=== PATIENT | female | born 1935 | race Caucasian/White ===

== ENCOUNTER 2016-06-20 17:10 | Inpatient (IN) | payer MEDICARE, OTHER, MEDICAID ==
[~2016-06-20] VITALS: Ht 160 cm; Wt 113.7 kg
[~2016-06-20 17:10] MED LIST: ASPI-973 PO; CALC-1021 PO; CYAN100T PO; ENOX40DI8 SUBQ; FISH OIL 500 M1 EAC2 PO; FLUO20CA25 PO; FURO40TA4 PO; GABA-502 PO; GLPZ5T PO; HYDR-3825 PO; INSU100I13 SUBQ; INSU200I SQ; LIP40 PO; LOSA50TA37 PO; METH35.42 TOPICAL; METO25TA6 PO; MULT-1018 PO; MYCC TOP; NITR0.4T SL; OMEP20TA86 PO; POTA-62 PO; TRAM50TA2 PO; UBID200C31 PO; ZLP5T PO
[2016-06-20 17:20] VITALS: BP 114/45; PULSE 101; RESP 13; O2SAT 98
[2016-06-20 17:43] LABS: BASOPHILS % (AUTO) 0.3 % (0-3); EOSINOPHILS % (AUTO) 2.2 % (0-5); MONOCYTES % (AUTO) 7.1 % (4-12); Mean Corpuscular Hemoglobin 28.9 pg (27.0-35.0); Mean Corpuscular Volume 93.1 fL (81-100); NEUTROPHILS % (AUTO) 54.6 % (40-74); Platelet Count 169 bil/L (150-400)
[2016-06-20 17:55] VITALS: BP 120/38; PULSE 77; RESP 19; O2SAT 97
--- NOTE | 2016-06-20 18:04 | ED.REPORT ---
HPI-General Illness Date of Service Jun 20, 2016 ED Provider: Iker Saxena DO Nursing Notes Stated Complaint: DECREASED LOC Chief Complaint: Neuro Symptoms/ Deficits Nursing Notes Reviewed: Yes Allergies: Coded Allergies: Sulfa (Sulfonamide Antibiotics) (Verified Allergy, Unknown, 08/19/13) Scheduled Aspirin (Aspirin) 81 Mg Tablet 81 MG PO DAILY Atorvastatin (Lipitor) 40 Mg Tablet 40 MG PO DAILY Calcium Carbonate/Vitamin D3 (Oyster Shell Calcium + D Cplt) 500 Mg-200 Tablet 1 EACH PO BID Cyanocobalamin (Vitamin B-12) (Vitamin B-12) 100 Mcg Tablet 100 MCG PO DAILY Enoxaparin Sodium (Enoxaparin Sodium) 40 Mg/0.4 Ml Syringe 40 MG SUBQ Q24 Fluoxetine (Fluoxetine) 20 Mg Capsule 20 MG PO HS Furosemide (Furosemide) 40 Mg Tablet 40 MG PO BID Gabapentin (Gabapentin) 300 Mg Capsule 900 MG PO HS Gabapentin (Gabapentin) 300 Mg Capsule 300 MG PO QAM Glipizide (Glipizide) 5 Mg Tablet 5 MG PO BID Insulin Glargine (Lantus U100 Solostar Insulin Pen) 100 Unit/1 Ml Insuln.pen 28 UNIT SUBQ HS Insulin Lispro (Humalog Kwikpen) 200 Unit/Ml (3 Ml) Insuln.pen 10 UNIT SQ TIDAC Losartan Potassium (Losartan Potassium) 50 Mg Tablet 50 MG PO DAILY Metoprolol Tartrate (Metoprolol Tartrate) 25 Mg Tablet 25 MG PO BID hold for pulse < 60. Multivitamin (Multi Vitamin Daily) 1 Each Tablet 1 EACH PO DAILY Nystatin (Nystatin) 60 Applic/15 Gm Cream 1 APPLIC TOP BID until resolved Omeprazole (Omeprazole) 20 Mg Tablet.dr 20 MG PO DAILY Potassium Chloride ER (Potassium Chloride ER) 20 Meq Tablet.er 20 MEQ PO DAILY TAKE WITH FOOD [place] Oil/[place]-3 Fatty Acids (Fish Oil 500 mg Softgel) 1 Each Capsule 1 EACH PO HS Tramadol (Tramadol) 50 Mg Tablet 50 MG PO TID Ubidecarenone (Coenzyme Q-10) 200 Mg Capsule 200 MG PO DAILY Scheduled PRN Hydrocodone-Acetaminophen 7.5-325 mg (Hydrocodone-Acetaminophen 7.5-325 mg) 1 Each Tablet 1 TABLET PO Q4H PRN PRN For Pain Methyl Salicylate/Menthol (Icy Hot Cream) 35.4 Gm Cream..g. 1 APPLIC TOPICAL QID PRN PRN For Pain Nitroglycerin SL (Nitrostat) 0.4 Mg Subl 0.4 MG SL Q5MIN PRN PRN For Chest Pain Zolpidem (Ambien) 5 Mg Tablet 5 MG PO HS PRN PRN insomnia General Time Seen by MD: 18:03 Transferred From: [facility] Chief Complaint Altered mental status Hx Obtained From: Patient Arrived By: Ambulance Sudden in Onset?: No Onset Occurred: Onset unknown Recent Healthcare: No recent doctor visit, No recent hospitalization Past Medical History Past Medical History Neuropathy Chronic kidney disease Aortic stenosis Reports: Diabetes mellitus, GERD, Hyperlipidemia, Hypertension Reports: Depression Past Surgical History Knee surgery Reports: Appendectomy, Cholecystectomy, Hysterectomy Smoking History Never Smoker Social History Other Social History: Lives in [facility]dc, Local resident Ambulatory Status Independent Review of Systems Full Review of Systems Neurologic: Reports: Weakness Psychiatric: Reports: Change mental status Complete sys rev & neg: except as marked. Physical Exam Vital Signs Vital Signs Date Time Temp Pulse Resp B/P Pulse Ox O2 Delivery O2 Flow Rate FiO2 06/20/16 17:55 77 19 120/38 97 06/20/16 17:20 36.8 101 13 114/45 98 Room Air Initial VS: Reviewed Interpretation & Diagnostics Lab Results Interpretation Result Diagram: 06/20/16 1739 Test 06/20/16 17:34 06/20/16 17:39 White Blood Count 6.4th/mm3 (3.8-10.1) Red Blood Count 4.33mil/mm3 (3.90-5.20) Hemoglobin 12.5g/dL (12.0-15.6) Hematocrit 40.3% (35.0-46.0) Mean Corpuscular Volume 93.1fL (81-100) Mean Corpuscular Hemoglobin 28.9pg (27.0-35.0) Mean Corpuscular Hemoglobin Concent 31.0% (32.0-37.0) Red Cell Distribution Width 14.3% (12.3-15.4) Platelet Count 169bil/L (150-400) Neutrophils (%) (Auto) 54.6% (40-74) Lymphocytes (%) (Auto) 35.8% (14-46) Monocytes (%) (Auto) 7.1% (4-12) Eosinophils (%) (Auto) 2.2% (0-5) Basophils (%) (Auto) 0.3% (0-3) Re-Eval/Medical Decision Source of Hx: Old records Counseled Regarding: Diagnosis, Lab results Discharge & Departure Discharge Condition All VS Reviewed: Yes Condition: Stable Referrals: OTHER,PHYSICIAN (PCP) Scribe Attestation Portions of this note were transcribed by Isabel Solis. Dr. Odessa Mason personally performed the history, physical exam and medical decision-making; I reviewed and confirmed the accuracy of the information in the transcribed note. Signed by: Brianne Pabon, 06/20/2016 1800 copies to: PHYSICIAN Odessa POND Todd P DO Jun 20, 2016 18:04 Isabel Solis Jun 20, 2016 18:12 OTHER,PHYSICIAN (PCP) Scribe Attestation Portions of this note were transcribed by Isabel Solis. Dr. Odessa Mason personally performed the history, physical exam and medical decision-making; I reviewed and confirmed the accuracy of the information in the transcribed note. Signed by: Brianne Pabon 06/20/2016 1800 copies to: PHYSICIAN Od[place] POND Todd P DO Jun 20, 2016 18:04 Isabel Solis Jun 20, 2016 18:12
--- NOTE | 2016-06-20 18:22 | ED.REPORT ---
HPI-Neurologic Deficit Date of Service Jun 20, 2016 ED Provider: Iker Saxena DO Patient is a 80 year old female with a history of diabetes mellitus, chronic kidney disease, hypertension, and hyperlipidemia who presents to the ED via EMS from [facility] after she developed altered mental status and a left sided facial droop on unknown onset, with last known normal yesterday evening. Per SNF the patient had difficulty feeding herself this morning. She was then found to have difficulty swallowing and speaking this afternoon, around 2:30pm. Her son was notified of these changes at 4pm this afternoon. His son rushed over to their facility after receiving this call and decided to go through with transport to the ED. He noted that she had a left sided facial droop, difficulty speaking, slurred speech, weakness, and that she did not appear like herself. Her daughter -in-law last saw her yesterday evening at dinner, at which some she was at her baseline. The patient is typically very sharp and talkative. The patient reports a mild headache on arrival to the ED and is unsure when her symptoms started today. Patient denies numbness of her extremities. She has not previously had a stroke and denies a history of atrial fibrillation. Nursing Notes Stated Complaint: DECREASED LOC Chief Complaint: Neuro Symptoms/ Deficits Nursing Notes Reviewed: Yes Allergies: Coded Allergies: Sulfa (Sulfonamide Antibiotics) (Verified Allergy, Unknown, 06/20/16) Scheduled Allopurinol (Allopurinol) 100 Mg Tablet 200 MG PO DAILY Aspirin (Aspirin) 81 Mg Tablet 81 MG PO DAILY Atorvastatin (Lipitor) 40 Mg Tablet 40 MG PO HS Calcium Carbonate/Vitamin D3 (Oyster Shell Calcium + D Cplt) 500 Mg-200 Tablet 1 EACH PO BIDWM Cyanocobalamin (Vitamin B-12) (Vitamin B-12) 100 Mcg Tablet 100 MCG PO DAILY Furosemide (Furosemide) 40 Mg Tablet 40 MG PO BIDWM Gabapentin (Gabapentin) 300 Mg Capsule 900 MG PO HS GABAPENTIN 300 MG IN AM AND 900 MG AT HS Gabapentin (Gabapentin) 300 Mg Capsule 300 MG PO QAM GABAPENTIN 300 MG IN AM AND 900 MG AT HS Glipizide (Glipizide) 5 Mg Tablet 5 MG PO BIDWM Insulin Glargine (Lantus U100 Solostar Insulin Pen) 100 Unit/1 Ml Insuln.pen 28 UNIT SUBQ HS Insulin Lispro (Humalog Kwikpen) 200 Unit/Ml (3 Ml) Insuln.pen 10 UNIT SQ TIDAC Losartan Potassium (Losartan Potassium) 50 Mg Tablet 50 MG PO QAM Meloxicam (Meloxicam) 7.5 Mg/5 Ml Oral.susp 15 MG PO DAILY HOLD FOR THE FIRST 7 DAYS OF THE MONTH Metoprolol Tartrate (Metoprolol Tartrate) 25 Mg Tablet 25 MG PO BID hold for pulse < 60. Multivitamin (Multi Vitamin Daily) 1 Each Tablet 1 EACH PO DAILY [place]-3 Fatty Acids (Fish Oil) 500 Mg Capsule.dr 500 MG PO DAILY Omeprazole (Omeprazole) 20 Mg Tablet.dr 20 MG PO QAM Potassium Chloride (Potassium Chloride) 10 Meq Tab.er.prt 30 MEQ PO DAILYWM TAKE WITH FOOD Sennosides (Senna) 8.6 Mg Tablet 17.2 MG PO HS Tramadol (Tramadol) 50 Mg Tablet 50 MG PO TID Ubidecarenone (Coenzyme Q-10) 200 Mg Capsule 200 MG PO DAILY Scheduled PRN Hydrocodone-Acetaminophen 7.5-325 mg (Hydrocodone-Acetaminophen 7.5-325 mg) 1 Each Tablet 1 TABLET PO Q4H PRN PRN For Pain Methyl Salicylate/Menthol (Icy Hot Cream) 35.4 Gm Cream..g. 1 APPLIC TOPICAL QID PRN PRN For Pain Nitroglycerin SL (Nitrostat) 0.4 Mg Subl 0.4 MG SL Q5MIN PRN PRN For Chest Pain Zolpidem (Ambien) 5 Mg Tablet 5 MG PO HS PRN PRN insomnia General Time Seen by Provider: 18:17 Chief Complaint Mental status change, Other (left facial droop) Hx Obtained From: Patient, Son Unable to Obtain Hx: Mental status (limited) Arrived By: Ambulance Sudden in Onset?: No Onset Occurred: Onset unknown (last known normal is last night) Symptom Duration: Since onset Location: : Head Severity: Current: Mild Severity: Maximum: Mild Recent Healthcare: No recent doctor visit, No recent hospitalization Similar Sx Previous: No Risk Factors NIH Stroke Scale Level of Consciousness: Alert and responsive (0) Ask Month & Age: 1 question right (1) Open/Close Eyes/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 both tasks (0) Horizontal EO Movements: Partial gaze palsy (1) Visual [place]: No visual loss (0) Facial Palsy: Minor paralysis (1) (left side of the face) Right Arm Motor Drift (10s): Drift, not touch bed (1) Left Arm Motor Drift (10s): Drift, not touch bed (1) Right Leg Motor Drift (5s): No effort, limb fails (3) Left Leg Motor Drift (5s): No effort, limb fails (3) Limb Ataxia FNF/Heel-Laboy: No ataxia (0) Sensation (Arms/Legs/Face): No sensory loss (0) Language Aphasia: Loss fluency ID matls (1) Dysarthria: Slurring intelligible (1) Extinction/Inattention: No exctinct/inattent (0) NIHSS Score: 13 Time NIHSS Performed: 18:20 Date NIHSS Performed: Jun 20, 2016 Past Medical History Past Medical History Neuropathy Chronic kidney disease Aortic stenosis Reports: Diabetes mellitus, GERD, Hypertension Reports: Depression, Renal failure Past Surgical History Knee surgery Reports: Appendectomy, Cholecystectomy, Hysterectomy Smoking History Never Smoker Social History Other Social History: Good social support, Lives in long-term, Local resident Ambulatory Status Independent Review of Systems Unable to Obtain ROS Mental status (limited) GI: Reports: Dysphagia Neurologic: Reports: Change LOC, Headache, Slurred speech, Weakness, Denies: Numbness, Unable to speak Psychiatric: Reports: Change mental status Complete sys rev & neg: except as marked. Physical Exam Initial Vital Signs Vital Signs (First) Date Time Temp Pulse Resp B/P Pulse Ox O2 Delivery O2 Flow Rate FiO2 06/20/16 17:20 36.8 101 13 114/45 98 Room Air Initial VS: Reviewed ENT: Conjunctiva normal, No scleral icterus Abdomen / GI: Soft, Non-tender, No guarding, No rebound Extremities: Vascular intact, No swelling, No tenderness Skin: Warm, Dry, No cyanosis Psychiatric: Mood/affect normal, Behavior normal General/Constitutional: Awake, Alert Head / Eyes: Normocephalic, PERRL, EOMI Respiratory / Chest: Breath sounds NL, Breath sounds = bilat, No respiratory distress, No rales, No rhonchi, No wheezing Cardiovascular: Heart rate NL, Regular rhythm, Heart sounds NL Neurologic: No sensory deficits Mental Status: Positive: Disoriented to place, Disoriented to time Speech: Positive: Slurred left sided facial droop see NIH stroke scale for more detail Neck: Supple, No JVD Interpretation & Diagnostics Lab Results Interpretation Result Diagram: 06/21/16 0553 06/21/16 0553 Test 06/20/16 17:34 06/20/16 17:39 Hold Purple Top Tube Received (Received) Hold Blue Top Tube Received (Received) Hold Red Top Tube Received (Received) Hold [place] Top Tube Received (Received) Prothrombin Time 9.8sec (8.1-12.5) Prothromb Time International Ratio 0.92ratio Hemoglobin A1c 6.3% (4.8-5.6) Total Bilirubin 0.4mg/dL (0.0-1.2) Aspartate Amino Transf (AST/SGOT) 28U/L (0-50) Alanine Aminotransferase (ALT/SGPT) 14U/L (0-32) Alkaline Phosphatase 94U/L (25-165) Troponin T < 0.010ug/L (0.0-0.011) Total Protein 6.5g/dL (6.4-8.4) ECG Interpretation ECG Interpretation: Sinus Rhythm, Rate 60 Q waves inferiorly no signs of hyperkalemia Time: 18:51 Interpreted by: ED physician X-Ray Chest Interpretation Chest Xray Interpretation: IMPRESSION: 1. Pulmonary vascular prominence suggesting mild edema as well as mild cardiomegaly suggesting congestive heart failure. Dictated by: Willam Tolentino M.D. on 06/20/2016 at 19:17 Approved by: Willam Tolentino M.D. on 06/20/2016 at 19:18 View: Portable Interpretation / Wet Read by: Interpret - Radiologist CT Head Interpretation IMPRESSION 1. No definite acute intracranial abnormality. 2. Indistinct hypodensities in the brainstem may reflect sequelae of lacunar infarcts of indeterminate acuity. Further evaluation may be obtained with MRI if clinically indicated. 3. [id number] cerebral volume loss and mild chronic white matter small vessel ischemic changes. Dictated by: Willam Tolentino M.D. on 06/20/2016 at 18:42 Approved by: Willam Tolentino M.D. on 06/20/2016 at 18:46 Study: Head CT no contrast Interpretation / Wet Read by: Interpret - Radiologist Re-Eval/Medical Decision Med Decision/Clinical Course Symptoms are greater than 6 hours out. Well beyond the window for thrombolytics or endovascular intervention. She will be admitted for further stroke care and preventative measures. Source of Hx: Old records Re-Evaluation/Progress : Time of Eval: 20:22 Re-Evaluation/Progress Note: Rechecked the patient. Informed the patient and her family that no acute process was found on the CT scan of her head. However, there were changes consistent with prior lacunar strokes and her symptoms are most consistent with a stroke. She will be treated with aspirin and will have an MRI tomorrow. Her chest x-ray showed signs of CHF, but other results are not consistent with this find. Discussed lab results. Will also evaluate the patient for possible infection. Patient and her family understand and agree with the plan for hospital admission. All questions were addressed. Consultation : Referral / Consult Name: Ean Bañuelos MD Consulted With: Hospitalist Call Returned at: 20:13 Medical Collector: Will see patient, Agrees with eval, Agrees with plan, Accepts admit Note: Spoke with Dr. Bañuelos, hospitalist, who agrees to accept admit. Counseled Regarding: Diagnosis, Lab results, Need for admission Discharge & Departure Impression: Primary Impression: Stroke CVA mechanism: unspecified Qualified Code: I63.9 - Cerebral infarction, unspecified Disposition: ADMITTED TO HOSPITAL Discharge Condition All VS Reviewed: Yes Condition: Stable Referrals: OTHER,PHYSICIAN (PCP) Scribe Attestation Portions of this note were transcribed by Isabel Solis. I, Dr. Saxena personally performed the history, physical exam and medical decision-making; I reviewed and confirmed the accuracy of the information in the transcribed note. Signed by: Brianne Pabon, 06/20/20162024 copies to: PHYSICIAN [place] POND Todd P DO Jun 20, 2016 18:22 Isabel Solis Jun 20, 2016 18:29 Total Protein 6.5g/dL (6.4-8.4) Albumin 3.5g/dL (3.4-5.0) ECG Interpretation ECG Interpretation: Sinus Rhythm, Rate 60 Q waves inferiorly no signs of hyperkalemia Time: 18:51 Interpreted by: ED physician X-Ray Chest Interpretation Chest Xray Interpretation: IMPRESSION: 1. Pulmonary vascular prominence suggesting mild edema as well as mild cardiomegaly suggesting congestive heart failure. Dictated by: Willam Tolentino M.D. on 06/20/2016 at 19:17 Approved by: Willam Tolentino M.D. on 06/20/2016 at 19:18 View: Portable Interpretation / Wet Read by: Interpret - Radiologist CT Head Interpretation IMPRESSION 1. No definite acute intracranial abnormality. 2. Indistinct hypodensities in the brainstem may reflect sequelae of lacunar infarcts of indeterminate acuity. Further evaluation may be obtained with MRI if clinically indicated. 3. Ehnd-dh-sroouuah cerebral volume loss and mild chronic white matter small vessel ischemic changes. Dictated by: Willam Tolentino M.D. on 06/20/2016 at 18:42 Approved by: Willam Tolentino M.D. on 06/20/2016 at 18:46 Study: Head CT no contrast Interpretation / Wet Read by: Interpret - Radiologist Re-Eval/Medical Decision Source of Hx: Old records Re-Evaluation/Progress : Time of Eval: 20:22 Re-Evaluation/Progress Note: Rechecked the patient. Informed the patient and her family that no acute process was found on the CT scan of her head. However, there were changes consistent with prior lacunar strokes and her symptoms are most consistent with a stroke. She will be treated with aspirin and will have an MRI tomorrow. Her chest x-ray showed signs of CHF, but other results are not consistent with this find. Discussed lab results. Will also evaluate the patient for possible infection. Patient and her family understand and agree with the plan for hospital admission. All questions were addressed. Consultation : Referral / Consult Name: Ean Bañuelos MD Consulted With: Hospitalist Call Returned at: 20:13 Medical Collector: Will see patient, Agrees with eval, Agrees with plan, Accepts admit Note: Spoke with Dr. Bañuelos, hospitalist, who agrees to accept admit. Counseled Regarding: Diagnosis, Lab results, Need for admission Discharge & Departure Impression: Primary Impression: Stroke CVA mechanism: unspecified Qualified Code: I63.9 - Cerebral infarction, unspecified Disposition: ADMITTED TO HOSPITAL Discharge Condition All VS Reviewed: Yes Condition: Stable Referrals: OTHER,PHYSICIAN (PCP) Scribe Attestation Portions of this note were transcribed by Isabel Solis. I, Dr. Saxena personally performed the history, physical exam and medical decision-making; I reviewed and confirmed the accuracy of the information in the transcribed note. Signed by: Brianne Pabon, 06/20/20162024 copies to: OTHER,PHYSICIAN Iker Saxena DO Jun 20, 2016 18:22 Isabel Solis Jun 20, 2016 18:29
[2016-06-20 18:45] LABS: INR 0.92 ratio
[2016-06-20] MEDS ORDERED: 0.9% Sodium Chloride 500 ML IV ONE (18:50)
--- NOTE | 2016-06-20 18:52 | DRSVH ---
PROCEDURE: CT BRAIN WITHOUT CONTRAST ([id number]) INDICATIONS: aphasia, dysarthria, facial droop, limb weakness TECHNIQUE: Noncontrast 4.5 mm thick angled axial sections acquired from the foramen magnum to the vertex, with c oronal reformats. COMPARISON: [facility], CT, CT BRAIN WO CON, 07/31/2015, 1:02. FINDINGS: Image quality: Excellent. CSF spaces: Basal cisterns are patent. No extra-axial fluid collections. The ventricles are symmet shantal in size and shape. There is mild to moderate cerebral volume loss, with resultant ventricular an d sulcal prominence. Brain: No intracranial hemorrhage, mass, or mass effect. There are subcortical, periventricular and deep white matter hypodensities consistent with mild chronic small vessel ischemic changes. There a re also indistinct hypodensities within the brainstem which are incompletely evaluated on is intracra nial internal carotid artery atherosclerosis. Skull and face: Calvarium and visualized facial bones appear intact, without suspicious lesions. Sinuses: Visualized sinuses and mastoids are clear. IMPRESSION: 1. No definite acute intracranial abnormality. 2. Indistinct hypodensities in the brainstem may reflect sequelae of lacunar infarcts of indetermina te acuity. Further evaluation may be obtained with MRI if clinically indicated. 3. Qhoe-hp-trdfodfj cerebral volume loss and mild chronic white matter small vessel ischemic changes . Dictated by: Willam Tolentino M.D. on 06/20/2016 at 18:42 Approved by: Willam Tolentino M.D. on 06/20/2016 at 18:46
--- NOTE | 2016-06-20 19:24 | DRSVH ---
PROCEDURE: X-RAY CHEST ONE VIEW, PORTABLE ([id number]) INDICATIONS: altered mental status, TECHNIQUE: One view of the chest was acquired. COMPARISON: None. FINDINGS: Surgical changes and devices: None. Lungs and pleura: No pleural effusions or pneumothorax. There is pulmonary vascular prominence in t he lung bases suggestive of mild pulmonary edema. Mediastinum: Mediastinal contours appear unchanged. Heart size is borderline enlarged. Bones and chest wall: No suspicious bony lesions. Overlying soft tissues appear unremarkable. IMPRESSION: 1. Pulmonary vascular prominence suggesting mild edema as well as mild cardiomegaly suggesting conge stive heart failure. Dictated by: Willam Tolentino M.D. on 06/20/2016 at 19:17 Approved by: Willam Tolentino M.D. on 06/20/2016 at 19:18
[2016-06-20 19:31] VITALS: BP 118/58; PULSE 98; RESP 24; O2SAT 95
[2016-06-20] MEDS ORDERED: POTA10TA38 PO (19:44)
[2016-06-20] MEDS ORDERED: ZYL100 PO (19:44)
[2016-06-20] MEDS ORDERED: UBID200C31 PO (19:51)
[2016-06-20] MEDS ORDERED: OMEG500C PO (19:51)
[2016-06-20] MEDS ORDERED: SENN-133 PO (19:52)
[2016-06-20] MEDS ORDERED: MELO7.5O PO (19:52)
[2016-06-20] MEDS ORDERED: Ondansetron 2 mg/mL 2 mL Inj IV PRN (20:20)
[2016-06-20] MEDS ORDERED: Alum-Mag Hydrox-Simeth 30 mL Suspension PO PRN (20:20)
[2016-06-20] MEDS ORDERED: Polyethylene Glycol (PEG) 17 Gm Powder PO PRN (20:20)
[2016-06-20 20:51] LABS: APPEARANCE,URINE CLEAR (CLEAR,HAZY); COLOR,URINE YELLOW (YELLOW); OCCULT BLOOD,URINE NEGATIVE (NEGATIVE); PH,URINE 5.5 (5.0-8.0); UROBILINOGEN,URINE NORMAL (NORMAL)
[2016-06-20] MEDS ORDERED: Glucose 40% Oral Gel 15 Gm Tube PO PRN (20:55)
[2016-06-20 21:20] VITALS: BP 135/69; PULSE 67; RESP 19; O2SAT 97
--- NOTE | 2016-06-20 21:29 | DRSVH ---
PROCEDURE: US BILATERAL DUPLEX DOPPLER IMAGING OF THE CAROTIDS ([id number]) INDICATIONS: Evaluate stroke follow up TECHNIQUE: Color and pulse Doppler interrogation was performed of both carotid systems, with image documentation and velocity measurements. COMPARISON: None. FINDINGS: All stenosis calculations are based on NASCET criteria. Right side: Common Carotid Artery(Distal) PSV: 88.10 cm/s Internal Carotid Artery PSV- Proximal: 50.50 cm/s Mid-lon.90 cm/s Distal: 58.90 cm/s EDV - Proximal: 12.90 cm/s Mid-lon.30 cm/s Distal: 16.70 cm/s External Carotid Artery(Proximal) PSV: 83 cm/s ICA/CCA PSV ratio: 0.8 Melvin scale imaging description: There is mild calcified plaque at the carotid bifurcation extending i nto the carotid bulb. Percent internal carotid artery stenosis: Less than 50%. Vertebral artery: Flow direction is antegrade. Left side: Brachial blood pressure: 118/58 mm Hg. Common Carotid Artery(Distal) PSV: 77.10 cm/s Internal Carotid Artery PSV - Proximal: 47.50 cm/s, 68.50 cm/s Mid-lon.20 cm/s Distal: 79.60 cm/s EDV - Proximal: 12.30 cm/s, 13.60 cm/s Mid-lon.60 cm/s Distal: 20.40 cm/s External Carotid Artery(Proximal) PSV: 74.70 cm/s ICA/CCA PSV ratio: 1.0 Melvin scale imaging description: There is mild calcified plaque at the carotid bifurcation extending i nto the carotid bulb. Percent internal carotid artery stenosis: Less than 50%. Vertebral artery: Flow direction is antegrade. IMPRESSION: 1. No evidence of hemodynamically significant stenosis in the carotid bulbs. Dictated by: Willam Tolentino M.D. on 06/20/2016 at 21:21 Approved by: Willam Tolentino M.D. on 06/20/2016 at 21:22
[2016-06-20] MEDS: Insulin LISPRO 300 Unit/3 mL Inj SUBQ SCH (22:00)
[2016-06-20] MEDS: 0.9% Sodium Chloride 1,000 ML IV SCH (22:13)
[2016-06-20] MEDS: Heparin 5,000 Unit/mL Inj SUBQ SCH (22:15)
[2016-06-21] VITALS (9 sets, daily range): BP systolic 137–177; BP diastolic 68–78; PULSE 65–85; RESP 18–19; O2SAT 95–100
--- NOTE | 2016-06-21 00:33 | PCM.HPMED ---
Subjective Date of Service Jun 20, 2016 Primary Provider: Admitting Physician: Ean Bañuelos MD Primary Care Physician: Ana M Good MD Attending Physician: Ean Bañuelos MD Admit Status: From the Emergency Department, 23-Hour Observation, Remote Telemetry Chief Complaint: Acute confusion with facial droop History of Present Illness: Amber Barker is a 80 year old female with Diabetes mellitus, Hypertension, and hyperlipidemia who presents to [facility] emergency department via EMS from [facility] after she developed altered mental status and a left sided facial droop. At this time onset unknown, with last known normal yesterday evening. Per SNF the patient had difficulty feeding herself this morning, due to weakness of her arms. She then was found to have difficulty swallowing and speaking this afternoon, around 2:30pm. Her son was notified of these changes at 4pm this afternoon. He noted that she had a left sided facial droop, difficulty speaking , slurred speech, weakness, and that she did not appear like herself. Her [id number]-[id number] last saw her yesterday evening at dinner, at which some she was at her baseline. The patient is typically very sharp and talkative. The patient reports a mild headache on arrival to the ED and is unsure when her symptoms started today. Patient denies numbness of her extremities. She has not previously had a stroke and denies a history of atrial fibrillation. Case discussed with Dr Saxena, NIH score 13 but was not a candidate for TPA due to unknown onset of symptoms. Review of Systems: Pertinent positives as noted in HPI. All other systems were reviewed and are negative Allergies Coded Allergies: Sulfa (Sulfonamide Antibiotics) (Verified Allergy, Unknown, 06/20/16) Home Medications From Amber Michel [id number] 1935 04/24/2016 10:20 AM 04/09 acetaminophen 325 mg tablet take 2 tablet by oral route every 4 hours as needed aspirin 81 mg Tab take 1 tablet (81MG) by ORAL route every day atorvastatin 40 mg tablet take 1 tablet by oral route every day Calci-Mix 500 mg calcium (1,250 mg) capsule calcium carbonate 600 mg (1,500 mg) tablet take 1 tablet by oral route 2 times every day coenzyme Q10 100 mg Cap take 2 by mouth every day Dulcolax (bisacodyl) 10 mg rectal suppository insert 1 suppository by rectal route every day as needed for constipation Fish Oil 500 mg capsule take one capsule by mouth daily Fleet Enema 19 gram-7 gram/118 mL insert one enema per rectum if no BM after suppository fluoxetine 20 mg tablet take 1 tablet by oral route every day in the morning furosemide 40 mg tablet take 1 tablet by oral route 2 times every day gabapentin 300 mg capsule TAKE 1 CAPSULES (600 MG) BY MOUTH EVERY AM gabapentin 300 mg capsule take 3 capsule by oral route every day at bedtime GABAPENTIN 300 MG CAPSULE TAKE TWO CAPSULES (600 MG) BY MOUTH AT BEDTIME glipizide 5 mg tablet take 1 tablet by oral route 2 times every day before meals Humalog Pen 100 unit/mL SubQ INJECT 3 TO 15 UNITS SUBCUTANEOUSLY THREE TIMES A DAY PER INSULIN SLIDING SCALE PROTOCOL hydrocodone 7.5 mg-acetaminophen 325 mg tablet take 1 tablet by oral route every 4 hours as needed for pain Klor-Con 20 mEq oral packet take 1 packet by oral route every day dissolved in 4-6 ounces of cold water or juice Klor-Con 20 mEq oral packet take 1.5 packet by oral route every day dissolved in 4-6 ounces of cold water or juice Lantus Solostar 100 unit/mL (3 mL) subcutaneous insulin pen INJECT SUBCUTANEOUSLY 28 UNITS ONCE DAILY. 1 PEN EXPIRES 28 DAYS AFTER OPENING. LANTUS SOLOSTAR 100 UNITS/ML INJECT SUBCUTANEOUSLY 44 TO 46 UNITS ONCE DAILY. 1 PEN EXPIRES 28 DAYS AFTER OPENING. Lidoderm 5 % topical patch apply 1 patch by transdermal route every day (May wear up to 12hours.) LISINOPRIL 30 MG TABLET TAKE ONE TABLET BY MOUTH EVERY DAY losartan 50 mg tablet take 1 tablet by oral route every day metoprolol tartrate 25 mg tablet take 1 tablet by oral route 2 times every day. Hold for pulse less than 60. Milk of Magnesia 400 mg/5 mL oral suspension take 30 milliliter by oral route every day as needed, followed by a full glass (8 oz) of liquid multivitamin Tab take 1 tablet by ORAL route every day with food nitroglycerin 0.4 mg sublingual tablet 1 tab sublingual prn for chest pain, may repeat after 5 mins X 3, if no improvement to call 911 Nitrostat 0.[address] 1 tablet by sublingual route at 1st sign of attack; may repeat every 5 minutes up to 3 tabs; if norelief seek medical help Kersey 3-6-9 1,200 mg (400 [id number]) Cap take 2 caps by oral route once daily omeprazole 20 mg Cap, Delayed Release take 1 capsule (20MG) by oral route every day before a meal potassium chloride ER 10 mEq capsule,extended release take 3 capsule by oral route every day POTASSIUM CHLORIDE ER 20MEQ TABLET TAKE ONE TABLET BY MOUTH EVERY DAY WITH FOOD senna 8.6 mg tablet take 2 tablet by oral route every day as needed for constipation Tessalon Perles 100 mg capsule take 1 capsule by oral route every 8 hours as needed for cough TRAMADOL HCL 50 MG TABLET *PENDING* GIVE 1 TABLET BY MOUTH 3 TIMES A DAY Vicodin ES 7.5 mg-300 mg tablet take 1 tablet by oral route every 6 hours as needed Vitamin B-12 100 mcg tablet give 1 tablet by oral route once daily vitamin F32-tsnup acid 500 mcg-400 mcg tablet take 1000mcg one time daily PMH Diabetes type 2 with Neuropathy Hyperlipidemia Hypertension Aortic stenosis Gout . Surgical History Appendectomy Cholecystectomy Hysterectomy Knee surgery Family History Mother with diabetes, had acute DE at 73 Maternal aunt had thyroid cancer Social History Hx Alcohol Use: No Hx Substance Use: No Hx Tobacco Use: No Smoking Status: Never Smoker Living Arrangement: Halfway Facility ([facility] [place]) Exam Vital Signs Vital Sign - Last Date Time Temp Pulse Resp B/P Pulse Ox O2 Delivery O2 Flow Rate FiO2 06/20/16 19:31 98 24 118/58 95 Room Air 06/20/16 17:20 36.8 Exam General: Alert, Oriented X3, Cooperative, No acute Distress Eyes: PERRLA, Scleral Anicteric Mouth: Mouth Normal, Mucous Membranes Moist/[place] Neck: Supple, no Thyromegaly, trachea central. Chest & Lungs: Clear to auscultation & percussion, No adventitious breath sounds, no crackles, no wheeze Cardiovascular: Normal S1, Normal S2, No Murmurs/Rubs/Gallops, Regular Rate/ Rhythm, systolic murmur present (No JVD, no peripheral edema) Pulses: Radial (present and equal), Dorsalis Pedi (present and equal) Abdomen: Soft, Non-tender, Non-distended, Normoactive bowel tones. Musculoskeletal: Unremarkable. Normal range of motion, no swollen or erythematous joints Extremities: No edema, no cyanosis, no clubbing. Skin: No rashes. Warm and dry, no erythematous areas Lymphatic: Lymph nodes Cervical and Axillary not palpable. Neurological: Mental Status: Awake with mild slurred speech Cranial nerves: PERRL. Extraocular movements are intact with no nystagmus. Visual vance are full to direct confrontation. The face showed left sided drooping, tongue midline Motor: Normal tone. right wallcovering texturer weaker than left hand Sensation: Intact to light touch throughout Coordination: Cerebellar testing intact Reflexes: 2 throughout, toes withdraw Gait: not tested Lab and Diagnostics Labs Laboratory Tests Test 06/20/16 17:34 06/20/16 17:39 Hold Purple Top Tube Received (Received) Hold Blue Top Tube Received (Received) Hold Red Top Tube Received (Received) Hold Benson Top Tube Received (Received) White Blood Count 6.4th/mm3 (3.8-10.1) Red Blood Count 4.33mil/mm3 (3.90-5.20) Hemoglobin 12.5g/dL (12.0-15.6) Hematocrit 40.3% (35.0-46.0) Mean Corpuscular Volume 93.1fL (81-100) Mean Corpuscular Hemoglobin 28.9pg (27.0-35.0) Mean Corpuscular Hemoglobin Concent 31.0% (32.0-37.0) Red Cell Distribution Width 14.3% (12.3-15.4) Platelet Count 169bil/L (150-400) Neutrophils (%) (Auto) 54.6% (40-74) Lymphocytes (%) (Auto) 35.8% (14-46) Monocytes (%) (Auto) 7.1% (4-12) Eosinophils (%) (Auto) 2.2% (0-5) Basophils (%) (Auto) 0.3% (0-3) Prothrombin Time 9.8sec (8.1-12.5) Prothromb Time International Ratio 0.92ratio Sodium Level 141mEq/L (134-144) Potassium Level 5.9mEq/L (3.5-5.2) Chloride Level 103mEq/L (97-108) Carbon Dioxide Level 27mmol/L (18-29) Blood Urea Nitrogen 20mg/dL (8-27) Creatinine 1.87mg/dL (0.57-1.00) Estimat Glomerular Filtration Rate 37mL/min (>59) Glucose Level 202mg/dL (60-99) Calcium Level 9.0mg/dL (8.5-10.1) Total Bilirubin 0.4mg/dL (0.0-1.2) Aspartate Amino Transf (AST/SGOT) 28U/L (0-50) Alanine Aminotransferase (ALT/SGPT) 14U/L (0-32) Alkaline Phosphatase 94U/L (25-165) Troponin T < 0.010ug/L (0.0-0.011) Total Protein 6.5g/dL (6.4-8.4) Albumin 3.5g/dL (3.4-5.0) Result Diagram: 06/20/16 1739 06/20/16 1739 X-Rays, CTs and MRIs CT BRAIN WITHOUT CONTRAST 06/20 IMPRESSION: 1. No definite acute intracranial abnormality. 2. Indistinct hypodensities in the brainstem may reflect sequelae of lacunar infarcts of indeterminate acuity. Further evaluation may be obtained with MRI if clinically indicated. 3. Vgsz-ob-ugpvlcvz cerebral volume loss and mild chronic white matter small vessel ischemic changes. Dictated by: Willam Tolentino M.D. on 06/20/2016 at 18:42 Approved by: Willam Tolentino M.D. on 06/20/2016 at 18:46 Assessment & Plan Amber Barker is a 80 year old female with Diabetes mellitus, Hypertension, and hyperlipidemia who presents to [facility] emergency department via EMS from [facility] after she developed altered mental status and a left sided facial droop 1. Acute encephalopathy and facial droop due to Possible Stroke. Present on admission Stroke risk factors includes age, Hypertension, Diabetes and Dyslipidemia. Ct head showed no bleeding. Not a TPA candidate due to presentation outside time window. EKG showed no Atrial fibrillation - monitor for Atrial fibrillation with telemetry - swallow evaluation - continue Aspirin but consider switch to Plavix if stroke confirmed for antithrombotic therapy - MRI/MRA brain, Carotid ultrasound and echo requested - consider discussion with Neurology ig MRI confirmed stroke - Physical, Occupational and Speech therapy 2. Acute Kidney Injury with mild Hyperkalemia. Present on admission Due to pre renal azotemia from dehydration. No EKG changes noted - avoid nephrotoxic insults - Iv fluids and holding Potassium supplement - will give Kayexalate if hyperkalemia persists 3. Diabetes mellitus type 2 with neuropathy, Chronic. - continue home gabapentin - hold glyburide while in hospital - if NPO will half the dose of Lantus - place on insulin medium correctional dose - checking A1c, target < 7 for secondary stroke prevention 4. Hypertension, Chronic. - holding all antihypertensive to allow permissive hypertension - for secondary prevention better hypertension control should be achieved 5. Hyperlipidemia, Chronic. - continue Atorvastatin 40 mg daily - checking lipids, LDL goal < 70 6. Depression, Chronic. - continue home fluoxetine 7. GERD, Chronic. - continue home omeprazole - Acetaminophen as needed for mild pain/fever/headache - Bowel regimen as needed - Antiemetic as needed Patient is admitted under observation status with expected length of stay less than 2 midnights due to severity of presenting symptoms, risk of adverse event, and complexity of treatment plan. . Resuscitation Status: DNR/DNI:Do Not Resuscitate/Intubate Ean Bañuelos MD Jun 20, 2016 20:24
--- NOTE | 2016-06-21 02:20 | NUR ---
Admit Patient arrived to room 1012 via ER stretcher. Moved to OSC bed with two person staff assist. A&O to self, unable to answer questions about where she was, would mumble and giggle in response. No c/o pain or discomfort. Able to squeeze hands, but unable to extend arms or move feet/legs at all. IV patent. Tele placed. Med rec and part of admit completed by admit RN. Rest of admit completed by this RN with info from medical records. Oriented to room and call light to best of patients ability. [place] alarm in place for safety.
[2016-06-21] MEDS: Heparin 5,000 Unit/mL Inj SUBQ SCH ×3 (05:21→22:20)
[2016-06-21] MEDS: 0.9% Sodium Chloride 1,000 ML IV SCH ×3 (05:21→16:48)
[2016-06-21 06:22] LABS: BASOPHILS % (AUTO) 0.4 % (0-3); EOSINOPHILS % (AUTO) 5.9 % (0-5); MONOCYTES % (AUTO) 7.9 % (4-12); Mean Corpuscular Hemoglobin 28.9 pg (27.0-35.0); NEUTROPHILS % (AUTO) 31.1 % (40-74); Platelet Count 141 bil/L (150-400)
[2016-06-21] MEDS: Insulin LISPRO 300 Unit/3 mL Inj SUBQ SCH ×4 (07:41→20:16)
--- NOTE | 2016-06-21 09:30 | NUR ---
SUPERVISOR MOLD [employer] consultation was received. Pt demonstrated weak voice, weak volitional cough, and was coughing and expectorating phlegm. Pt politely declined SUPERVISOR MOLD SHOP evaluation. Recommend NPO with meds via IV and frequent oral care. Discussed with RN.
--- NOTE | 2016-06-21 10:00 | NUR ---
Evaluation completed. Please go to "Notes" then click on "Assessments and Notes" (bottom left corner of screen). Then select appropriate discipline tab on top of screen.
--- NOTE | 2016-06-21 11:08 | DRSVH ---
PROCEDURE: MRI BRAIN WITHOUT CONTRAST ([id number]) INDICATIONS: stroke TECHNIQUE: Non-contrast axial T1 spin echo, axial T2 fast spin echo, sagittal and axial FLAIR, coronal T2 fast s pin echo, axial gradient echo, axial diffusion and ADC through the brain. COMPARISON: [facility], CT, CT BRAIN WO CON, 06/20/2016, 18:28. FINDINGS: Image quality: Excellent. CSF spaces: Ventricles appear symmetric in size and shape. Basal cisterns are patent. No extra-axi al fluid collections. Brain: No intracranial bleeds or mass effects. There is cerebral volume loss for age. There is enl argement of the Meckel's caves bilaterally indicating normal variation. There are periventricular and deep white matter chronic small vessel ischemic changes. Brainstem appears normal. Diffusion-weigh eduardo images show no acute ischemic insults. No chronic ischemic insults. Normal intravascular flow v oids are present. Skull and face: Calvarial bone marrow is normal in signal. Orbits are normal. Sinuses: Sinuses and mastoids are clear. IMPRESSION: 1. No acute intracranial abnormality. No recent infarct. 2. Mild volume loss and small vessel ischemic disease. Dictated by: Pretty Bowens M.D. on 06/21/2016 at 11:00 Approved by: Pretty Bowens M.D. on 06/21/2016 at 11:07
--- NOTE | 2016-06-21 13:30 | NUR ---
Tremor/Skin care Patient with new onset tremor on Left side. Family states this tremor is significantly worse than patient "shaking while cold" yesterday. Primarily on left arm, with some mild tremor of LLE. Patient turned, cleaned and repositioned. Mepilex placed on sacrum where skin is red with decreased blanching. Clalmoseptine cream placed gluteal folds, groin, and under breasts where skin is red and excoriated.
--- NOTE | 2016-06-21 13:34 | NUR ---
Swallow/LOC Patient increasingly alert and conversational. FAST assessment indicates facial droop improved. Repeated RN bedside swallow eval, interrupted by dialysis equipment technician at thins, but patient passed honey thick and thin liquids successfully with no cough or regurgitation. When ECHO is complete, this RN will complete eval with applesauce and a cracker trial. Patient completely upright, prompted for swallow, and suction at bedside. Spoke to ST Kaleigh Vaughn regarding possible progression to honey thick liquids and puree diet if patient passes RN swallow eval. Addendum: 06/21/16 at 1428 by JULIO LAGUNA RN RN Swallow eval completed at bedside. Patient successfully ate small bites/spoonfuls of honey thick, and applesauce with no coughing/aspiration symptoms.
--- NOTE | 2016-06-21 14:08 | NUR ---
Casemanagment- IMM explained and signed by patient. Copy given to patient. Orginal placed in chart. Carli LAGUNA
--- NOTE | 2016-06-21 14:34 | NUR ---
Swallow eval, cont... Changed pt diet to honey thick liquids, puree food diet with no straws in [facility]. notified.
--- NOTE | 2016-06-21 14:44 | PCM.PNMED ---
Subjective Date of Service Jun 21, 2016 Subjective Patient alert and oriented 3. Seen with son at bedside. He states her mentation has improved and she is back to baseline. He states she had significant left facial droop last night which resolved now.RUDY improving. Exam Vital Signs Vital Sign - Last Date Time Temp Pulse Resp B/P Pulse Ox O2 Delivery O2 Flow Rate FiO2 06/21/16 14:38 36.8 78 18 174/68 97 Room Air Intake and Output 06/20/16 06/20/16 06/21/16 Cumulative From/Thru 15:00 23:00 07:00 06/20/16 17:20 - 06/21/16 05:47 Intake Total 1000 ml 881 ml 1881 ml Output Total 500 ml 500 ml Balance 1000 ml 381 ml 1381 ml Intake Oral 0 ml 0 ml IV Total 1000 ml 881 ml 1881 ml Output Urine Total 500 ml 500 ml # Bowel Movements 0 0 Exam General: Alert, Oriented X3, Cooperative, No acute Distress Eyes: PERRLA, Scleral Anicteric Mouth: Mouth Normal, Mucous Membranes Moist/[place] Neck: Supple, no Thyromegaly, trachea central. Chest & Lungs: Clear to auscultation & percussion, No adventitious breath sounds, no crackles, no wheeze Cardiovascular: Normal S1, Normal S2, No Murmurs/Rubs/Gallops, Regular Rate/ Rhythm, systolic murmur present (No JVD, no peripheral edema) Pulses: Radial (present and equal), Dorsalis Pedi (present and equal) Abdomen: Soft, Non-tender, Non-distended, Normoactive bowel tones. Musculoskeletal: Unremarkable. Normal range of motion, no swollen or erythematous joints Extremities: No edema, no cyanosis, no clubbing. Skin: No rashes. Warm and dry, no erythematous areas Lymphatic: Lymph nodes Cervical and Axillary not palpable. Neurological: Mental Status: Awake with clear speech Cranial nerves: PERRL. Extraocular movements are intact with no nystagmus. Visual vance are full to direct confrontation. No drooping currently, tongue midline Motor: Normal tone. 4/5 in all 4 extremities. no symmetrically Sensation: Intact to light touch throughout Coordination: Cerebellar testing intact Reflexes: 2 throughout, toes withdraw Gait: not tested IVs and Medications Medications Reviewed: Medications were reviewed in detail Lab and Diagnostics Result Diagram: 06/21/16 0553 06/21/16 0553 X-Rays, CTs and MRIs CT BRAIN WITHOUT CONTRAST 06/20 IMPRESSION: 1. No definite acute intracranial abnormality. 2. Indistinct hypodensities in the brainstem may reflect sequelae of lacunar infarcts of indeterminate acuity. Further evaluation may be obtained with MRI if clinically indicated. 3. Ytdd-ih-tbksbfab cerebral volume loss and mild chronic white matter small vessel ischemic changes. Dictated by: Willam Tolentino M.D. on 06/20/2016 at 18:42 Approved by: Willam Tolentino M.D. on 06/20/2016 at 18:46 PROCEDURE: MRI BRAIN WITHOUT CONTRAST ([id number]) INDICATIONS: stroke TECHNIQUE: Non-contrast axial T1 spin echo, axial T2 fast spin echo, sagittal and axial FLAIR, coronal T2 fast spin echo, axial gradient echo, axial diffusion and ADC through the brain. COMPARISON: [facility], CT, CT BRAIN WO CON, 06/20/2016, 18:28. FINDINGS: Image quality: Excellent. CSF spaces: Ventricles appear symmetric in size and shape. Basal cisterns are patent. No extra-axial fluid collections. Brain: No intracranial bleeds or mass effects. There is cerebral volume loss for age. There is enlargement of the Meckel's caves bilaterally indicating normal variation. There are periventricular and deep white matter chronic small vessel ischemic changes. Brainstem appears normal. Diffusion-weighted images show no acute ischemic insults. No chronic ischemic insults. Normal intravascular flow voids are present. Skull and face: Calvarial bone marrow is normal in signal. Orbits are normal. Sinuses: Sinuses and mastoids are clear. IMPRESSION: 1. No acute intracranial abnormality. No recent infarct. 2. Mild volume loss and small vessel ischemic disease. Dictated by: Pretty Bowens M.D. on 06/21/2016 at 11:00 PROCEDURE: US BILATERAL DUPLEX DOPPLER IMAGING OF THE CAROTIDS ([id number]) INDICATIONS: Evaluate stroke follow up TECHNIQUE: Color and pulse Doppler interrogation was performed of both carotid systems, with image documentation and velocity measurements. COMPARISON: None. FINDINGS: All stenosis calculations are based on NASCET criteria. Right side: Common Carotid Artery(Distal) PSV: 88.10 cm/s Internal Carotid Artery PSV- Proximal: 50.50 cm/s Mid-lon.90 cm/s Distal: 58.90 cm/s EDV - Proximal: 12.90 cm/s Mid-lon.30 cm/s Distal: 16.70 cm/s External Carotid Artery(Proximal) PSV: 83 cm/s ICA/CCA PSV ratio: 0.8 Melvin scale imaging description: There is mild calcified plaque at the carotid bifurcation extending into the carotid bulb. Percent internal carotid artery stenosis: Less than 50%. Vertebral artery: Flow direction is antegrade. Left side: Brachial blood pressure: 118/58 mm Hg. Common Carotid Artery(Distal) PSV: 77.10 cm/s Internal Carotid Artery PSV - Proximal: 47.50 cm/s, 68.50 cm/s Mid-lon.20 cm/s Distal: 79.60 cm/s EDV - Proximal: 12.30 cm/s, 13.60 cm/s Mid-lon.60 cm/s Distal: 20.40 cm/s External Carotid Artery(Proximal) PSV: 74.70 cm/s ICA/CCA PSV ratio: 1.0 Melvin scale imaging description: There is mild calcified plaque at the carotid bifurcation extending into the carotid bulb. Percent internal carotid artery stenosis: Less than 50%. Vertebral artery: Flow direction is antegrade. IMPRESSION: 1. No evidence of hemodynamically significant stenosis in the carotid bulbs. Dictated by: Willam Tolentino M.D. on 06/20/2016 at 21:21 Assessment & Plan Amber Barker is a 80 year old female with Diabetes mellitus, Hypertension, and hyperlipidemia who presents to [facility] emergency department via EMS from [facility] after she developed altered mental status and a left sided facial droop 1. Acute encephalopathy and facial droop due to TIA. Present on admission -Encephalopathy and facial droop resolved. Patient almost at her baseline as per son at bedside as per son Stroke risk factors includes age, Hypertension, Diabetes and Dyslipidemia. Ct head showed no bleeding. Not a TPA candidate due to presentation outside time window. EKG showed no Atrial fibrillation - monitor for Atrial fibrillation with telemetry - swallow evaluation. Initially failed in the morning . Patient now more awake , swallow eval repeated and did well . Pure with honey consistency - continue Aspirin -MRI Negative for acute stroke, Carotid ultrasound unremarkable and echo pending - Physical, Occupational and Speech therapy 2. Acute Kidney Injury with mild Hyperkalemia. Present on admission -initial cr 1.87,improved to 1.51 ,likley due to decreased oral intake due to TIA Due to pre renal azotemia from dehydration. No EKG changes noted - avoid nephrotoxic insults - Iv fluids and holding Potassium supplement - hold home losartan 50 mg daily, Lasix 40 mg by mouth daily, KCl 30 meq daily 3. Diabetes mellitus type 2 with neuropathy, Chronic. - continue home gabapentin -Continue glyburide - Home insulin: Lantus 28 u hs, Novolog 10 units 3 times a day. glucose 120, Will give Lantus if pm glucose> 150, will hold NovoLog 10 units tid for today given lower blood glucose and has been npo until 3 pm - place on insulin medium correctional dose - checking A1c, target < 7 for secondary stroke prevention 4. Hypertension, Chronic. - hold home losartan 50 mg daily, Lasix 40 mg by mouth daily due to RUDY 5. Hyperlipidemia, Chronic. - continue Atorvastatin 40 mg daily - checking lipids, LDL goal < 70 6. Depression, Chronic. - continue home fluoxetine 7. GERD, Chronic. - continue home omeprazole - Acetaminophen as needed for mild pain/fever/headache - Bowel regimen as needed - Antiemetic as needed Disposition: Inpatient status, possible discharge tomorrow if continues to improve ,Rudy improves and after PT eval VTE Mechanical Devices: Intermittant Pneumatic CD Resuscitation Status: DNR/DNI:Do Not Resuscitate/Intubate Malcolm Weir MD Jun 21, 2016 14:44
--- NOTE | 2016-06-21 14:55 | NUR ---
Social Work-initial assessment/ readiness for discharge: Data:See initial assessment. Pt is a 80 y/o female who was admitted on 06/20/16 for stroke per H&P. Pt's insurance is [employer] and [facility] [id number]. EMR reviewed. PATTIE met with pt and son [place]ino at bedside to discuss discharge planning, PATTIE role explained. Pt resides at [facility] where she remains independent with basic ADls. Pt has a fww and does not drive. Pt has no HH history. Pt has no halfway care or VA benefits. PATTIE discussed DPOA/ advanced directive, son confirms this has been completed, SW encouraged a copy to be brought into the hospital. Son anticipates pt to discharge back to [facility] when medically stable. PATTIE spoke with Larry in admissions at [facility] and they are agreeable for pt to return, pt is halfway care, access provided. PATTIE provided phone number and plan on white board in room. Paperwork placed in the chart. SW will continue to follow. Assessment:Pt is a halfway care pt at [facility]. Plan:Pt to discharge back to [facility] when medically stable. Paperwork placed in the chart. PATTIE will continue to follow. CHRISTAL Au Addendum: 06/21/16 at 1501 by MICKY BOYLE SS Amended: Links added.
--- NOTE | 2016-06-21 15:02 | NUR ---
[facility] can accept pt when ready with Dr. Good to follow- pt is correction care on [facility]. Radha Yates MSW
--- NOTE | 2016-06-21 15:55 | NUR ---
NUTRITION ASSESSMENT: ASSESS: 80 YO female admitted for acute confusion and stroke. Pt diet was advanced today, but no po intake has yet been reported. PMHx: DM type 2, hyperlipidemia, HTN, aortic stenosis, gout. LABS: Reviewed. Na 146, Cr 1.51, Glu 132, Alb 2.8, PAB 15. MEDS: Reviewed. GI: No BM reported yet. SKIN: Low Isrrael of 11. CURRENT WT: 110.3 kg. Adj BW: 66.8 kg. DIET: Dysphagia Mechanical, Honey Thick liquids. NO po intake reported yet. EST. NEEDS: 6050-8242 kcals (25-30 kcals/kg Adj BW), 80-100 g protein (1.2-1.5 g/kg Adj BW) NUTRITION DIAGNOSIS: 1.) Chewing / Swallowing difficulties related to motor causes as evidenced by current need for mechanically altered diet texture, ST following. NUTRITION INTERVENTION: 1.) Continue to advance diet as able per ST recommendations. MONITOR / EVAL: PO intake, diet advancement / tolerance, labs, nutritional status. Follow per moderate nutritional risk guidelines.
--- NOTE | 2016-06-21 15:56 | DRSVH ---
[facility] [address] [place] [address] Echocardiogram Report Name: JERI DRAKE LStudy Date: 06/21/2016 Height: 63 in Hospital Exam Location: [facility] Weight: 243 lb Gender: Female BSA: 2.1 m2 : 1935 Age: 80 yrs BP: 145/77 m mHg Reason For Study: Stroke Ordering Physician: [facility] Performed By: Louise Sutton Referring Physician: BETHANY PEREZ Interpretation Summary Borderline concentric left ventricular hypertrophy with hyperdynamic function and estimated ejection fraction 65-70%. Grade II diastolic dysfunction. Moderate aortic stenosis. The peak aortic velocity is 3.14 m/sec. The right ventricular systolic pressure is estimated at 30 mmHg assuming a right atrial pressure of 8 mm Hg. Comparison is made with the echocardiogram of 04/13/11, aortic stenosis has progressed. Procedure: A two-dimensional transthoracic echocardiogram with color flow and Doppler was performed. The study quality was technically adequate. Comparison is made with the echocardiogram of 04/13/11. EKG was not functioning during this exam. Left Ventricle: There is borderline concentric left ventricular hypertrophy. The left ventricle is hyperdynamic. The ejection fraction is estimated to be 65-70%. There are no focal wall motion abnormalities. Assessment of diastolic parameters suggests a pseudonormalization pattern, consistent with elevated filling pressures. Right Ventricle: The right ventricle is grossly normal size. Atria: Both atria are normal in size. There is no Doppler evidence for an interatrial shunt. Mitral Valve: The mitral valve leaflets appear thickened, but open well. There is trace mitral regurgitation. Aortic Valve: The aortic valve is mildly calcified. Leaflet mobility is moderately reduced. There is moderate aortic stenosis. The peak aortic velocity is 3.14 m/sec. The peak aortic velocity on the previous exam was 2.6 m/sec. The aortic valve mean gradient is 23 mmHg. The severity ratio is 0.33. No aortic regurgitation is present. Tricuspid Valve: The tricuspid valve is not well visualized, but is grossly normal. There is trace tricuspid regurgitation. The right ventricular systolic pressure is estimated at 30 mmHg assuming a right atrial pressure of 8 mm Hg. Pulmonic Valve: The pulmonic valve is not well seen, but is grossly normal. There is no pulmonic valvular regurgitation. Great Vessels: The aortic root is not well visualized. The ascending aorta is normal in size. The aortic arch could not be visualized. The pulmonary artery is not well visualized, but is probably normal size. The IVC is of normal diameter and collapses less than 50% with a sniff. This suggests a right atrial pressure of 8 mm Hg. Pericardium/ Pleura There is no pericardial effusion. There is no pleural effusion. MMode/2D Measurements & Calculations LVIDd: 4.7 cm RA long axis LVOT diam LVIDs: 2.4 cm LA A2 area: 21.8 cm FS: 50.1 % LA A4 area: 24.8 cm RA area AoV Opening IVSd: 0.95 cm LA length (vol): 6.4 cm LVPWd: 0.97 cm LA vol: 71.7 ml : 15.1 cm Ao root diam LA vol index RA vol : 36.3 ml asc Aorta RA Diam: 3.3 cm IVC diam: 1.7 cm : 17.3 mm2 LV downey. diameter/BSA LV sys. diameter/BSA RVD1 (basal) RVD2 (mid) (cm/m^2): 2.2 (cm/m^2): 1.1 : 2.9 cm Doppler Measurements & Calculations Ao V2 max MV E max bebeto MV E/A: 1.4 TR max bebeto : 314.1 cm/sec : 152.8 cm/sec Med Peak E' Bebeto : 236.2 cm/sec Ao max PG MV A max bebeto TR max PG : 39.5 mmHg : 108.0 cm/sec E/E' med: 27.6 : 22.3 mmHg Ao mean PG MV P1/2t: 65.7 msec Lat Peak E' Bebeto PA V2 max : 23.4 mmHg : 87.9 cm/sec LVOT Max Bebeto E/E' lat: 14.5 PA mean PG : 103.7 cm/sec E/e' average: 21.1 KARMEN(I,D): 0.91 cm MV A dur: 0.15 sec PA Accel Time sev ratio : 0.16 sec MV dec time MV P1/2t max bebeto Ao V2 mean LV V1 max PG : 0.22 sec : 228.6 cm/sec Ao V2 VTI: 74.8 cm LV V1 VTI MVA(P1/2t): 3.3 cm2 : 24.4 cm KARMEN(V,D): 0.92 cm2 PA V2 mean KARMEN indexed to BSA : 63.1 cm/sec (cm^2/m^2): 0.43 Electronically signed by: Pasquale Cason on Reading Physician:06/21/2016 03:55 PM
[2016-06-21] MEDS ORDERED: Menthol Gel 57 Gm Tube TOPICAL PRN (16:30)
[2016-06-21] MEDS ORDERED: Insulin LISPRO 300 Unit/3 mL Inj SUBQ SCH (17:00)
[2016-06-21] MEDS: Calcium Carbonate (Oyster Shell) 500 mg Tablet PO SCH (20:25)
[2016-06-21] MEDS ORDERED: Insulin GLARgine 100 Unit/mL Syringe SUBQ SCH (21:00)
[2016-06-22] MEDS: 0.9% Sodium Chloride 1,000 ML IV SCH ×2 (00:46→12:17)
--- NOTE | 2016-06-22 02:21 | NUR ---
Activity/Blood Glucose Patient in bed all of shift. Continues to be turned [id number], and is able to help staff with turning and repositioning. Denies any pain or discomfort. CB. Order to hold HS Lantus if CBG <150, medication held.
[2016-06-22 05:42] VITALS: PULSE 83
[2016-06-22] MEDS: Heparin 5,000 Unit/mL Inj SUBQ SCH (05:42)
[2016-06-22 05:48] VITALS: BP 154/77; PULSE 80; RESP 18; O2SAT 97
[2016-06-22] MEDS ORDERED: Pantoprazole 20 mg ER24 Tablet PO SCH (06:30)
[2016-06-22 07:51] VITALS: PULSE 79
[2016-06-22] MEDS ORDERED: Non-Formulary Medication (Ubidecarenone (Coenzyme Q-10) 200 MG) PO SCH (08:30)
[2016-06-22] MEDS: Calcium Carbonate (Oyster Shell) 500 mg Tablet PO SCH (08:30)
[2016-06-22] MEDS ORDERED: Omega-3 Fatty Acids 1,000 mg Capsule PO SCH (08:30)
[2016-06-22] MEDS: Insulin LISPRO 300 Unit/3 mL Inj SUBQ SCH ×2 (08:33→11:37)
[2016-06-22 08:34] VITALS: BP 184/84; PULSE 71; RESP 16; O2SAT 100
--- NOTE | 2016-06-22 09:34 | NUR ---
Evaluation completed. Please go to "Notes" then click on "Assessments and Notes" (bottom left corner of screen). Then select appropriate discipline tab on top of screen.
[2016-06-22] MEDS ORDERED: hydrALAZINE 20 mg/mL Inj IV PRN (10:05)
[2016-06-22 10:13] VITALS: BP 161/87; PULSE 69
[2016-06-22 10:38] LABS: BASOPHILS % (AUTO) 0.5 % (0-3); EOSINOPHILS % (AUTO) 6.5 % (0-5); Mean Corpuscular Hemoglobin 29.3 pg (27.0-35.0); Mean Corpuscular Volume 89.2 fL (81-100); Platelet Count 135 bil/L (150-400)
--- NOTE | 2016-06-22 11:35 | PCM.DIMED ---
Discharge Instructions Date of Service Jun 22, 2016 Dates of Hospitalization Jun 20, 2016 at 19:49 Discharge Diagnosis Discharge Diagnosis Acute TIA causing acute encephalopathy Acute kidney injury, resolved Diabetes mellitus, chronic Hypertension Hyperlipidemia next depression GERD Medication Instructions Patient will continue on aspirin 81 mg, atorvastatin and metoprolol Test Results PROCEDURE: MRI BRAIN WITHOUT CONTRAST ([id number]) INDICATIONS: stroke TECHNIQUE: Non-contrast axial T1 spin echo, axial T2 fast spin echo, sagittal and axial FLAIR, coronal T2 fast spin echo, axial gradient echo, axial diffusion and ADC through the brain. COMPARISON: [facility], CT, CT BRAIN WO CON, 06/20/2016, 18:28. FINDINGS: Image quality: Excellent. CSF spaces: Ventricles appear symmetric in size and shape. Basal cisterns are patent. No extra-axial fluid collections. Brain: No intracranial bleeds or mass effects. There is cerebral volume loss for age. There is enlargement of the Meckel's caves bilaterally indicating normal variation. There are periventricular and deep white matter chronic small vessel ischemic changes. Brainstem appears normal. Diffusion-weighted images show no acute ischemic insults. No chronic ischemic insults. Normal intravascular flow voids are present. Skull and face: Calvarial bone marrow is normal in signal. Orbits are normal. Sinuses: Sinuses and mastoids are clear. IMPRESSION: 1. No acute intracranial abnormality. No recent infarct. 2. Mild volume loss and small vessel ischemic disease. Dictated by: Pretty Bowens M.D. on 06/21/2016 at 11:00 Carotid Doppler IMPRESSION: 1. No evidence of hemodynamically significant stenosis in the carotid bulbs. CT brain IMPRESSION: 1. No definite acute intracranial abnormality. 2. Indistinct hypodensities in the brainstem may reflect sequelae of lacunar infarcts of indeterminate acuity. Further evaluation may be obtained with MRI if clinically indicated. 3. [id number] cerebral volume loss and mild chronic white matter small vessel ischemic changes. Dictated by: Willam Tolentino M.D. on 06/20/2016 at 18:42 Diet Heart Healthy, Diabetic Activity Other (physical therapy and occupational therapy along with cognitive therapy) Call your provider Fever or Chills, Shortness of breath, Weakness (unilateral) Patient Instructions He has suffered from a acute transient ischemic attack which is a mini stroke. This has occurred when there is a lack of oxygen to the brain, there is no evidence of bleeding in her brain on CT imaging and there was no significant strokes seen on an MRI image. You can still have a TIA in the absence of findings on MRI. Please continue taking her aspirin, metoprolol, atorvastatin which I will protect against future strokes. Please follow up with her primary care physician regularly, Dr. Wilton Good - preferably within 1 week of discharge from nursing home facility. He will be followed by the physician at the [facility] as well. Follow-up plan He will be seen by the nursing home facility physician and please follow with Dr. Sidhu within 1 week of discharge from the rehabilitation center - or within 3 weeks. Follow-up Provider: Ana M Good MD Follow-up with PCP in: 2 weeks Eric Buck DO Jun 22, 2016 11:35
--- NOTE | 2016-06-22 11:49 | PCM.DC.MED ---
Discharge Summary Date of Service Jun 22, 2016 Dates of Hospitalization Date of Hospital Admission Jun 20, 2016 at 19:49 Date of Discharge: Jun 22, 2016 Providers: Admitting Physician: Ean Bañuelos MD Primary Care Physician: Ana M Good MD Attending Physician: Dr. Eric Buck D.O. Diagnosis at Time of Discharge Diagnosis at Time of Discharge Acute TIA causing acute encephalopathy Acute kidney injury, resolved Diabetes mellitus, chronic Hypertension Hyperlipidemia next depression GERD Consultations None Procedures XRay, CTs & MRIs CT BRAIN WITHOUT CONTRAST 06/20 IMPRESSION: 1. No definite acute intracranial abnormality. 2. Indistinct hypodensities in the brainstem may reflect sequelae of lacunar infarcts of indeterminate acuity. Further evaluation may be obtained with MRI if clinically indicated. 3. [id number]-[id number] cerebral volume loss and mild chronic white matter small vessel ischemic changes. Dictated by: Willam Tolentino M.D. on 06/20/2016 at 18:42 Approved by: Willam Tolentino M.D. on 06/20/2016 at 18:46 PROCEDURE: MRI BRAIN WITHOUT CONTRAST ([id number]) INDICATIONS: stroke TECHNIQUE: Non-contrast axial T1 spin echo, axial T2 fast spin echo, sagittal and axial FLAIR, coronal T2 fast spin echo, axial gradient echo, axial diffusion and ADC through the brain. COMPARISON: [facility], CT, CT BRAIN WO CON, 06/20/2016, 18:28. FINDINGS: Image quality: Excellent. CSF spaces: Ventricles appear symmetric in size and shape. Basal cisterns are patent. No extra-axial fluid collections. Brain: No intracranial bleeds or mass effects. There is cerebral volume loss for age. There is enlargement of the Meckel's caves bilaterally indicating normal variation. There are periventricular and deep white matter chronic small vessel ischemic changes. Brainstem appears normal. Diffusion-weighted images show no acute ischemic insults. No chronic ischemic insults. Normal intravascular flow voids are present. Skull and face: Calvarial bone marrow is normal in signal. Orbits are normal. Sinuses: Sinuses and mastoids are clear. IMPRESSION: 1. No acute intracranial abnormality. No recent infarct. 2. Mild volume loss and small vessel ischemic disease. Dictated by: Pretty Bowens M.D. on 06/21/2016 at 11:00 PROCEDURE: US BILATERAL DUPLEX DOPPLER IMAGING OF THE CAROTIDS ([id number]) INDICATIONS: Evaluate stroke follow up TECHNIQUE: Color and pulse Doppler interrogation was performed of both carotid systems, with image documentation and velocity measurements. COMPARISON: None. FINDINGS: All stenosis calculations are based on NASCET criteria. Right side: Common Carotid Artery(Distal) PSV: 88.10 cm/s Internal Carotid Artery PSV- Proximal: 50.50 cm/s Mid-lon.90 cm/s Distal: 58.90 cm/s EDV - Proximal: 12.90 cm/s Mid-lon.30 cm/s Distal: 16.70 cm/s External Carotid Artery(Proximal) PSV: 83 cm/s ICA/CCA PSV ratio: 0.8 Melvin scale imaging description: There is mild calcified plaque at the carotid bifurcation extending into the carotid bulb. Percent internal carotid artery stenosis: Less than 50%. Vertebral artery: Flow direction is antegrade. Left side: Brachial blood pressure: 118/58 mm Hg. Common Carotid Artery(Distal) PSV: 77.10 cm/s Internal Carotid Artery PSV - Proximal: 47.50 cm/s, 68.50 cm/s Mid-lon.20 cm/s Distal: 79.60 cm/s EDV - Proximal: 12.30 cm/s, 13.60 cm/s Mid-lon.60 cm/s Distal: 20.40 cm/s External Carotid Artery(Proximal) PSV: 74.70 cm/s ICA/CCA PSV ratio: 1.0 Melvin scale imaging description: There is mild calcified plaque at the carotid bifurcation extending into the carotid bulb. Percent internal carotid artery stenosis: Less than 50%. Vertebral artery: Flow direction is antegrade. IMPRESSION: 1. No evidence of hemodynamically significant stenosis in the carotid bulbs. Dictated by: Willam Tolentino M.D. on 06/20/2016 at 21:21 ECG 12 Lead Sinus rhythm, evidence of old inferior infarct Cardiac Echo Impression 06/21 echo: Interpretation Summary Borderline concentric left ventricular hypertrophy with hyperdynamic function and estimated ejection fraction 65-70%. Grade II diastolic dysfunction. Moderate aortic stenosis. The peak aortic velocity is 3.14 m/sec. The right ventricular systolic pressure is estimated at 30 mmHg assuming a right atrial pressure of 8 mm Hg. Comparison is made with the echocardiogram of 04/13/11, aortic stenosis has progressed. Procedure: A two-dimensional transthoracic echocardiogram with color flow and Doppler was performed. The study quality was technically adequate. Comparison is made with the echocardiogram of 04/13/11. EKG was not functioning during this exam. Left Ventricle: There is borderline concentric left ventricular hypertrophy. The left ventricle is hyperdynamic. The ejection fraction is estimated to be 65-70%. There are no focal wall motion abnormalities. Assessment of diastolic parameters suggests a pseudonormalization pattern, consistent with elevated filling pressures. Right Ventricle: The right ventricle is grossly normal size. Atria: Both atria are normal in size. There is no Doppler evidence for an interatrial shunt. Mitral Valve: The mitral valve leaflets appear thickened, but open well. There is trace mitral regurgitation. Aortic Valve: The aortic valve is mildly calcified. Leaflet mobility is moderately reduced. There is moderate aortic stenosis. The peak aortic velocity is 3.14 m/sec. The peak aortic velocity on the previous exam was 2.6 m/sec. The aortic valve mean gradient is 23 mmHg. The severity ratio is 0.33. No aortic regurgitation is present. Tricuspid Valve: The tricuspid valve is not well visualized, but is grossly normal. There is trace tricuspid regurgitation. The right ventricular systolic pressure is estimated at 30 mmHg assuming a right atrial pressure of 8 mm Hg. Pulmonic Valve: The pulmonic valve is not well seen, but is grossly normal. There is no pulmonic valvular regurgitation. Great Vessels: The aortic root is not well visualized. The ascending aorta is normal in size. The aortic arch could not be visualized. The pulmonary artery is not well visualized, but is probably normal size. The IVC is of normal diameter and collapses less than 50% with a sniff. This suggests a right atrial pressure of 8 mm Hg. Pericardium/ Pleura There is no pericardial effusion. There is no pleural effusion. Other Diagnostics PROCEDURE: MRI BRAIN WITHOUT CONTRAST ([id number]) INDICATIONS: stroke TECHNIQUE: Non-contrast axial T1 spin echo, axial T2 fast spin echo, sagittal and axial FLAIR, coronal T2 fast spin echo, axial gradient echo, axial diffusion and ADC through the brain. COMPARISON: [facility], CT, CT BRAIN WO CON, 06/20/2016, 18:28. FINDINGS: Image quality: Excellent. CSF spaces: Ventricles appear symmetric in size and shape. Basal cisterns are patent. No extra-axial fluid collections. Brain: No intracranial bleeds or mass effects. There is cerebral volume loss for age. There is enlargement of the Meckel's caves bilaterally indicating normal variation. There are periventricular and deep white matter chronic small vessel ischemic changes. Brainstem appears normal. Diffusion-weighted images show no acute ischemic insults. No chronic ischemic insults. Normal intravascular flow voids are present. Skull and face: Calvarial bone marrow is normal in signal. Orbits are normal. Sinuses: Sinuses and mastoids are clear. IMPRESSION: 1. No acute intracranial abnormality. No recent infarct. 2. Mild volume loss and small vessel ischemic disease. Dictated by: Pretty Bowens M.D. on 06/21/2016 at 11:00 Carotid Doppler IMPRESSION: 1. No evidence of hemodynamically significant stenosis in the carotid bulbs. CT brain IMPRESSION: 1. No definite acute intracranial abnormality. 2. Indistinct hypodensities in the brainstem may reflect sequelae of lacunar infarcts of indeterminate acuity. Further evaluation may be obtained with MRI if clinically indicated. 3. [id number] cerebral volume loss and mild chronic white matter small vessel ischemic changes. Brief History Amber Barker is a 80 year old female with Diabetes mellitus, Hypertension, and hyperlipidemia who presents to [facility] emergency department via EMS from [facility] after she developed altered mental status and a left sided facial droop. At this time onset unknown, with last known normal yesterday evening. Per SNF the patient had difficulty feeding herself this morning, due to weakness of her arms. She then was found to have difficulty swallowing and speaking this afternoon, around 2:30pm. Her son was notified of these changes at 4pm this afternoon. He noted that she had a left sided facial droop, difficulty speaking , slurred speech, weakness, and that she did not appear like herself. Her sjpnaosd-[id number] last saw her yesterday evening at dinner, at which some she was at her baseline. The patient is typically very sharp and talkative. The patient reports a mild headache on arrival to the ED and is unsure when her symptoms started today. Patient denies numbness of her extremities. She has not previously had a stroke and denies a history of atrial fibrillation. Case discussed with Dr Saxena, NIH score 13 but was not a candidate for TPA due to unknown onset of symptoms. Hospital Course Amber Barker is a 80 year old female with Diabetes mellitus, Hypertension, and hyperlipidemia who presents to [facility] emergency department via EMS from [facility] after she developed altered mental status and a left sided facial droop 1. Acute encephalopathy and facial droop due to TIA. Present on admission -Encephalopathy and facial droop resolved. Patient almost at her baseline as per son at bedside - with moderate confusion at the time discharge, a/ox1 Stroke risk factors includes age, Hypertension, Diabetes and Dyslipidemia. Ct head showed no bleeding. Was not a TPA candidate due to presentation outside time window. EKG showed no Atrial fibrillation - swallow evaluation- l recommending mechanical dysphagia diet with pure/honey thick consistency - continue Aspirin -MRI Negative for acute stroke, Carotid ultrasound unremarkable and echo with evidence of moderate that has slightly progressed since previous echo - Physical, Occupational and Speech therapy to continue at care home facility, patient to be discharged to [facility] 2. Acute Kidney Injury with mild Hyperkalemia. Present on admission--> resolved -initial cr 1.87,improved , now ,likley due to decreased oral intake due to TIA Due to pre renal azotemia from dehydration. No new EKG changes noted - Patient was given Iv fluids and potassium, ARB and Lasix were held during admission given AK I -Patient will be discharged on home losartan 50 mg daily, Lasix 40 mg by mouth daily, KCl 30 meq daily 3. Diabetes mellitus type 2 with neuropathy, Chronic. - continue home gabapentin -Continue glyburide - Home insulin: Restarted at discharge, Lantus 28 u hs, Novolog 10 units 3 times a day. During hospitalization NovoLog was held Lantus - with sugars noting to be 198 - place on insulin medium correctional dose -A1c of 6.3 noted, at target < 7 for secondary stroke prevention 4. Hypertension, Chronic. -Continue home losartan 50 mg daily, Lasix 40 mg by mouth daily with supplemental potassium at discharge due to normalized kidney function 5. Hyperlipidemia, Chronic. - continue Atorvastatin 40 mg daily 6. Depression, Chronic. - continue home fluoxetine 7. GERD, Chronic. - continue home omeprazole - Acetaminophen as needed for mild pain/fever/headache - Bowel regimen as needed - Antiemetic as needed Disposition: Patient was stable for discharge today with improvement in kidney function to focus on rehabilitation care home facility Exam Vital Signs (Last) Date Time Temp Pulse Resp B/P Pulse Ox O2 Delivery O2 Flow Rate FiO2 06/22/16 10:13 69 161/87 06/22/16 08:34 36.9 16 100 Room Air Exam General: Alert, Oriented X3, Cooperative, No acute Distress Eyes: PERRLA, Scleral Anicteric Mouth: Mouth Normal, Mucous Membranes Moist/[place] Neck: Supple, no Thyromegaly, trachea central. Chest & Lungs: Clear to auscultation & percussion, No adventitious breath sounds, no crackles, no wheeze Cardiovascular: Normal S1, Normal S2, No Murmurs/Rubs/Gallops, Regular Rate/ Rhythm, systolic murmur present (No JVD, no peripheral edema) Pulses: Radial (present and equal), Dorsalis Pedi (present and equal) Abdomen: Soft, Non-tender, Non-distended, Normoactive bowel tones. Musculoskeletal: Unremarkable. Normal range of motion, no swollen or erythematous joints Extremities: No edema, no cyanosis, no clubbing. Skin: No rashes. Warm and dry, no erythematous areas Lymphatic: Lymph nodes Cervical and Axillary not palpable. Neurological: Mental Status: Awake with clear speech Cranial nerves: PERRL. Extraocular movements are intact with no nystagmus. Visual vance are full to direct confrontation. No drooping currently, tongue midline Motor: Normal tone. 4/5 in all 4 extremities. no symmetrically Sensation: Intact to light touch throughout Coordination: Cerebellar testing intact Reflexes: 2 throughout, toes withdraw Gait: not tested Test 06/20/16 17:34 06/20/16 17:39 06/20/16 20:32 06/21/16 05:53 Hold Purple Top Tube Received (Received) Hold Blue Top Tube Received (Received) Hold Red Top Tube Received (Received) Hold [place] Top Tube Received (Received) Prothrombin Time 9.8sec (8.1-12.5) Prothromb Time International Ratio 0.92ratio Hemoglobin A1c 6.3% (4.8-5.6) Troponin T < 0.010ug/L (0.0-0.011) Urine Color Yellow (YELLOW) Urine Appearance Clear (CLEAR,HAZY) Urine pH 5.5 (5.0-8.0) Urine Specific [place] 1.020 (1.003-1.035) Urine Protein Negativemg/dL (NEG,TRACE) Urine Glucose (UA) Negativemg/dL (NEGATIVE) Urine Ketones Negativemg/dL (NEGATIVE) Urine Occult Blood Negative (NEGATIVE) Urine Nitrite Negative (NEGATIVE) Urine Bilirubin Negative (NEGATIVE) Urine Urobilinogen Normalmg/dL (NORMAL) Urine Leukocyte Esterase Negative (NEGATIVE) Urine RBC 0-2/hpf (0-2) Urine WBC 0-5/hpf (0-5) Urine Epithelial Cells Few/hpf (NONE-MOD) Urine Crystals None seen (NONE SEEN) Urine Bacteria Few/hpf (NONE-FEW) Urine Hyaline Casts Occasional/lpf (NONE) Urine Granular Casts None seen (NONE SEEN) Urine Waxy Casts None seen (NONE SEEN) Urine Red Blood Cell Casts None seen (NONE SEEN) Urine White Blood Cell Casts None seen (NONE SEEN) Urine Mucus None seen (None Seen) Urine Trichomonas None seen (NONE SEEN) Urine Yeast None (NONE SEEN) Urinalysis Comment None Urine Culture Reflexed Not indicated Prealbumin 15mg/dL (20-40) Test 06/22/16 10:30 White Blood Count 5.5th/mm3 (3.8-10.1) Red Blood Count 4.26mil/mm3 (3.90-5.20) Hemoglobin 12.5g/dL (12.0-15.6) Hematocrit 38.0% (35.0-46.0) Mean Corpuscular Volume 89.2fL (81-100) Mean Corpuscular Hemoglobin 29.3pg (27.0-35.0) Mean Corpuscular Hemoglobin Concent 32.9% (32.0-37.0) Red Cell Distribution Width 13.7% (12.3-15.4) Platelet Count 135bil/L (150-400) Neutrophils (%) (Auto) 54.0% (40-74) Lymphocytes (%) (Auto) 29.9% (14-46) Monocytes (%) (Auto) 8.0% (4-12) Eosinophils (%) (Auto) 6.5% (0-5) Basophils (%) (Auto) 0.5% (0-3) Sodium Level 142mEq/L (134-144) Potassium Level 4.7mEq/L (3.5-5.2) Chloride Level 109mEq/L (97-108) Carbon Dioxide Level 21mmol/L (18-29) Blood Urea Nitrogen 16mg/dL (8-27) Creatinine 0.89mg/dL (0.57-1.00) Estimat Glomerular Filtration Rate 87mL/min (>59) Glucose Level 198mg/dL (60-99) Calcium Level 8.3mg/dL (8.5-10.1) Total Bilirubin 0.5mg/dL (0.0-1.2) Aspartate Amino Transf (AST/SGOT) 33U/L (0-50) Alanine Aminotransferase (ALT/SGPT) 15U/L (0-32) Alkaline Phosphatase 90U/L (25-165) Total Protein 5.9g/dL (6.4-8.4) Albumin 2.9g/dL (3.4-5.0) Discharge Medications Discharge Medications Allopurinol (Allopurinol) 100 Mg Tablet 200 MG PO DAILY (Reported) Aspirin (Aspirin) 81 Mg Tablet 81 MG PO DAILY (Reported) Atorvastatin (Lipitor) 40 Mg Tablet 40 MG PO HS (Reported) Calcium Carbonate/Vitamin D3 (Oyster Shell Calcium + D Cplt) 500 Mg-200 Tablet 1 EACH PO BIDWM (Reported) Cyanocobalamin (Vitamin B-12) (Vitamin B-12) 100 Mcg Tablet 100 MCG PO DAILY ( Reported) Furosemide (Furosemide) 40 Mg Tablet 40 MG PO BIDWM (Reported) Gabapentin (Gabapentin) 300 Mg Capsule 900 MG PO HS (Reported) GABAPENTIN 300 MG IN AM AND 900 MG AT HS Gabapentin (Gabapentin) 300 Mg Capsule 300 MG PO QAM (Reported) GABAPENTIN 300 MG IN AM AND 900 MG AT HS Glipizide (Glipizide) 5 Mg Tablet 5 MG PO BIDWM (Reported) Insulin Glargine (Lantus U100 Solostar Insulin Pen) 100 Unit/1 Ml Insuln.pen 28 UNIT SUBQ HS (Reported) Insulin Lispro (Humalog Kwikpen) 200 Unit/Ml (3 Ml) Insuln.pen 10 UNIT SQ TIDAC (Reported) Losartan Potassium (Losartan Potassium) 50 Mg Tablet 50 MG PO QAM (Reported) Meloxicam (Meloxicam) 7.5 Mg/5 Ml Oral.susp 15 MG PO DAILY (Reported) HOLD FOR THE FIRST 7 DAYS OF THE MONTH Metoprolol Tartrate (Metoprolol Tartrate) 25 Mg Tablet 25 MG PO BID (Reported) hold for pulse < 60. Multivitamin (Multi Vitamin Daily) 1 Each Tablet 1 EACH PO DAILY (Reported) [place]-3 Fatty Acids (Fish Oil) 500 Mg Capsule.dr 500 MG PO DAILY (Reported) Omeprazole (Omeprazole) 20 Mg Tablet.dr 20 MG PO QAM (Reported) Potassium Chloride (Potassium Chloride) 10 Meq Tab.er.prt 30 MEQ PO DAILYWM ( Reported) TAKE WITH FOOD Sennosides (Senna) 8.6 Mg Tablet 17.2 MG PO HS (Reported) Tramadol (Tramadol) 50 Mg Tablet 50 MG PO TID (Reported) Ubidecarenone (Coenzyme Q-10) 200 Mg Capsule 200 MG PO DAILY (Reported) As needed Hydrocodone-Acetaminophen 7.5-325 mg (Hydrocodone-Acetaminophen 7.5-325 mg) 1 Each Tablet 1 TABLET PO Q4H PRN PRN For Pain (Reported) Methyl Salicylate/Menthol (Icy Hot Cream) 35.4 Gm Cream..g. 1 APPLIC TOPICAL QID PRN PRN For Pain (Reported) Nitroglycerin SL (Nitrostat) 0.4 Mg Subl 0.4 MG SL Q5MIN PRN PRN For Chest Pain Prescribed by: MARIAN JOHNSON MD Zolpidem (Ambien) 5 Mg Tablet 5 MG PO HS PRN PRN insomnia Prescribed by: MARIAN JOHNSON MD Additional med instructions Patient will continue on aspirin 81 mg, atorvastatin and metoprolol Followup Plan Follow-up plan He will be seen by the [facility] and please follow with Dr. Sidhu within 1 week of discharge from the rehabilitation center - or within 3 weeks. Discharge Diet: Heart Healthy, Diabetic Discharge Activity: Other (physical therapy and occupational therapy along with cognitive therapy) Patient Instructions He has suffered from a acute transient ischemic attack which is a mini stroke. This has occurred when there is a lack of oxygen to the brain, there is no evidence of bleeding in her brain on CT imaging and there was no significant strokes seen on an MRI image. You can still have a TIA in the absence of findings on MRI. Please continue taking her aspirin, metoprolol, atorvastatin which I will protect against future strokes. Please follow up with her primary care physician regularly, Dr. Wilton Good - preferably within 1 week of discharge from care home [facility]. He will be followed by the physician at the [facility] [place] as well. Follow-up Provider: Ana M Good MD Follow-up with PCP in: 2 weeks Time spent 45 minutes spent with patient evaluation discharge. Greater than 50% time spent in [id number] with coordination of care copies to: Ana M Good MD, David DO Jun 22, 2016 11:39
[2016-06-22 12:41] VITALS: BP 169/72; PULSE 61; RESP 16; O2SAT 98
--- NOTE | 2016-06-22 13:23 | NUR ---
Social Work- Discharge Data: EMR reviewed. Pt is on day 2 of hospitalization for stroke per H&P. Pt to discharge today. PATTIE spoke with Larry, admissions at [facility], who is agreeable to accepting pt today. Larry arranged transportation via cabulance at 1330. UR Specialist created packet and faxed orders. PATTIE updated pt at bedside and informed ELE Barker of discharge. RN, UC, pt/family and [facility] all updated and agreeable to plan. Assessment: Pt who resides at [facility]. Plan: Pt to discharge to [facility] via cabulance at 1330. RN, UC, pt/family and [facility] all updated and agreeable to plan. Yolette Barrett MSW
--- NOTE | 2016-06-22 14:08 | NUR ---
DISCHARGE Patient is alert and oriented to person and place. Confused at times. Per CSV this is her baseline. She denies pain. Tolerating liquids PO and her diet well. Denies nausea. No emesis noted. Denies SOB. Patient was able to get OOB and sat in the chair with 1 PA. Tolerated activity well. No IV access. [facility] Dis[facility] to [facility] via cabulance with all her personal belongings. Patients son is aware.
== END 2016-06-22 14:03 | DRG 71 ==
LOC: SED 17:10 → EDUNIT# 17:10 → EDBD 17:10 → OSC 19:49
PROVIDERS: ADMIT Hospitalist; ATTEND Hospitalist
DX: G93.40 Encephalopathy, unspecified (principal); N17.8 Other acute kidney failure; G45.9 Transient cerebral ischemic attack, unspecified; Z79.82 Long term (current) use of aspirin; Z79.4 Long term (current) use of insulin; R29.713 NIHSS score 13; R47.81 Slurred speech; R29.810 Facial weakness; E87.5 Hyperkalemia; E11.40 Type 2 diabetes mellitus with diabetic neuropathy, unspecified; E78.5 Hyperlipidemia, unspecified; F32.9 Major depressive disorder, single episode, unspecified; K21.9 Gastro-esophageal reflux disease without esophagitis; Z66 Do not resuscitate; E86.0 Dehydration; G94 Other disorders of brain in diseases classified elsewhere; I10 Essential (primary) hypertension